=== PATIENT | female | born 1990 | race Caucasian/White ===

== ENCOUNTER → 2016-12-31 | Outpatient (CLI) | payer OTHER ==
--- NOTE | ~2016-12-31 | CR63 ---
[facility] A Service of [facility] RADIOLOGY TEXT RESULTS PATIENT: NIEVES RASHID LOCATION: [facility] : [birth year] UNIT #: [id number] AGE: [address]: Judith Gutierrez MD SEX: F ORDER DR: [id number] [facility] [address] [place], [place] [address] [id number] O MR#: [id number] Acc #: [id number] NAME: NIEVES RASHID : 1990 SEX: F STUDY DATE/TIME: 12/31/2016 12:18 UNIT: [facility] ROOM: STUDY DESCRIPTION: CR Chest 2 View Attending Physician: Judith Gutierrez M.D. Referring Physician: Judith Gutierrez M.D. Ordering Physician: Judith Gutierrez M.D. Primary Care Physician: Judith Gutierrez M.D. MEDICAL IMAGING REPORT This report is preliminary unless electronic signature is present EXAM AP lateral chest INDICATIONS 26-year-old female with history of cough and weakness for 1 day. Pneumonia. COMPARISON No comparisons FINDINGS There are bibasilar infiltrates suspicious for pneumonia. Follow up to clearing is recommended. Heart size is normal. IMPRESSION Bibasilar infiltrates suspicious for pneumonia. Follow up to clearing is recommended. Dictated by... Kory Schneider M.D. THIS IS AN ELECTRONICALLY VERIFIED REPORT Kory Schneider M.D. at 01/01/2017 9:08 AM ARS/to TD: 12/31/2016 15:37 JOB #: [id number] MEDICAL IMAGING REPORT Page 1 of 1 COPY
== END | disposition home or self-care (01) ==
LOC: CRAD 12:01
DX: J45.909 Unspecified asthma, uncomplicated (principal); R91.8 Other nonspecific abnormal finding of lung field; Q90.9 Down syndrome, unspecified
CPT/HCPCS: 71020

== ENCOUNTER → 2017-01-20 | Outpatient (CLI) | payer OTHER ==
--- NOTE | ~2017-01-20 | CR63 ---
[facility] A Service of [facility] RADIOLOGY TEXT RESULTS PATIENT: NIEVES RASHID LOCATION: [facility] : [birth year] UNIT #: [id number] AGE: [address]: Judith Gutierrez MD SEX: F ORDER DR: [id number] [facility] [address] [place], [place] [address] [id number] O MR#: [id number] Acc #: [id number] NAME: NIEVES RASHID : 1990 SEX: F STUDY DATE/TIME: 01/20/2017 8:47 UNIT: [facility] ROOM: STUDY DESCRIPTION: CR Chest 2 View Attending Physician: Judith Gutierrez M.D. Referring Physician: Judith Gutierrez M.D. Ordering Physician: Judith Gutierrez M.D. Primary Care Physician: Judith Gutierrez M.D. MEDICAL IMAGING REPORT This report is preliminary unless electronic signature is present EXAM Chest PA and lateral, 01/20 COMPARISON 12/31 HISTORY Recent diagnosis of pneumonia 2 weeks ago. Followup chest radiograph. History of Down syndrome. FINDINGS PA and lateral view obtained. The heart size is within normal limits. There is scoliosis and on this study there is some elevation of the left hemidiaphragm. Pulmonary infiltrates have cleared. There is no acute process in the chest. CONCLUSION 1. Scoliosis. 2. Elevated left hemidiaphragm. 3. Clearing of the pulmonary infiltrates. Dictated by... Christian Gan M.D. THIS IS AN ELECTRONICALLY VERIFIED REPORT Christian Gan M.D. at 01/21/2017 7:31 AM Duy TD: 01/20/2017 10:48 JOB #: [id number] MEDICAL IMAGING REPORT Page 1 of 1 COPY
== END | disposition home or self-care (01) ==
LOC: CRAD 08:33
DX: Z09 Encounter for follow-up examination after completed treatment for conditions other than malignant neoplasm (principal); Z87.01 Personal history of pneumonia (recurrent); Z87.09 Personal history of other diseases of the respiratory system; M41.9 Scoliosis, unspecified; J98.6 Disorders of diaphragm
CPT/HCPCS: 71020